=== PATIENT | female | born 1975 | race Caucasian/White ===

== ENCOUNTER 2017-06-29 07:48 | Day surgery (SDC) | payer BC ==
[2017-06-27 15:16] LABS: Calcium 9.3 mg/dL (8.5-10.1); Potassium 4.5 mmol/L (3.5-5.1)
[2017-06-27 15:27] LABS: INR 1.14 (0.9-1.15); Partial Thromboplastin Time 28.2 sec (22.64-33.71); Prothrombin Time 12.4 sec (9.37-12.3)
[2017-06-27 15:29] LABS: Urine Bilirubin Negative (Negative); Urine Blood Negative /uL (Negative); Urine Color Yellow (Yellow); Urine Glucose Normal (Normal); Urine Ketone Negative (Negative); Urine Nitrite Negative (Negative); Urine RBC 2 /hpf (0 - 4); Urine Squamous Epithelial Cell FEW /hpf (<5); Urine Urobilinogen Normal (Negative)
[2017-06-27 15:31] LABS: Basophils # (auto) 0.1 uL; Basophils % (auto) 0.8 % (0.0-2.0); Eosinophils # (auto) 0.1 uL; Eosinophils % (auto) 1.7 % (0.0-7.0); Hematocrit 44.7 % (36.0-46.0); Lymphocytes # (auto) 2.2 uL; Lymphocytes % (auto) 29.6 % (10.0-50.0); Mean Corpuscular Hemoglobin 31.8 pg (28.0-32.0); Mean Corpuscular Hgb Conc. 33.6 g/dL (32.0-36.0); Mean Corpuscular Volume 94.6 fL (80.0-100.0); Mean Platelet Volume 8.3 fL (6.9-10.8); Monocytes # (auto) 0.7 uL; Monocytes % (auto) 9.6 % (0.0-12.0); Neutrophils # (auto) 4.3 uL; Neutrophils % (auto) 58.3 % (37.0-80.0); Platelet Count (auto) 260 10^3/uL (140-450); Red Cell Distribution Width 13.9 % (11.8-14.3); White Blood Cell 7.4 10^3/uL (4.4-10.8)
[~2017-06-29] VITALS: Ht 188 cm; Wt 104.3 kg
[~2017-06-29 07:48] MED LIST: ONDA4TAB5 PO
[2017-06-29] MEDS ORDERED: ceFAZolin 1GM/50ML D5W 50 ML IV ONE (08:57)
[2017-06-29] MEDS ORDERED: LACTATED RINGER'S 1,000 ML IV SCH (08:59)
[2017-06-29] MEDS ORDERED: BUPIVACAINE 0.25% INJ 50ML VIAL ONE (08:59)
[2017-06-29] MEDS ORDERED: LIDOCAINE HCL (LOCAL ANESTH.) 0.5 % 50ML MDV IJ ONE (08:59)
[2017-06-29] MEDS ORDERED: LIDOCAINE W/ EPINEPHRINE 1 % INJ 30ML ONE (08:59)
[2017-06-29] MEDS ORDERED: SUCCINYLCHOLINE CHLORIDE 20 MG/ML 10ML VIAL IV ONE (09:18)
[2017-06-29] MEDS ORDERED: METOCLOPRAMIDE HCL 5MG/ml INJ 2ml VIAL ONE (09:44)
[2017-06-29] MEDS ORDERED: MEPERIDINE HCL (50 MG/ML) 1 ML VIAL ONE (09:46)
[2017-06-29] MEDS ORDERED: fentaNYL CITRATE 100 MCG/2 ML VL ONE (09:46)
[2017-06-29] MEDS ORDERED: fentaNYL CITRATE 10 ML ONE (09:46)
[2017-06-29] MEDS ORDERED: MIDAZOLAM HCL 1MG/1ML-2 ML VIAL ONE (09:46)
[2017-06-29] MEDS ORDERED: ROCURONIUM 10MG/ML 10ML VIAL IV ONE (11:03)
[2017-06-29] MEDS ORDERED: KETOROLAC TROMETH 60MG/2ML VIAL IM ONE ×2 (11:04→11:45)
[2017-06-29] MEDS ORDERED: ONDANSETRON HCL 4 MG/2 ML VIAL ONE (11:04)
[2017-06-29] MEDS ORDERED: SODIUM CHLORIDE LOCK 20 ML ONE (11:04)
[2017-06-29] MEDS ORDERED: NEOSTIGMINE 1 MG/ML INJ (10mg/10ML VIAL) ONE (11:04)
[2017-06-29] MEDS ORDERED: GLYCOPYRROLATE 0.2 MG/ML 1ML VIAL ONE (11:04)
[2017-06-29] MEDS ORDERED: PROPOFOL 10 MG/ML 20 ML IV ONE (11:04)
[2017-06-29] MEDS ORDERED: KETOROLAC TROMETH 30 MG/ML 1ML VIAL ONE (11:23)
[2017-06-29] MEDS ORDERED: HYDROmorphone HCL 2 MG/ML VL IV PRN (11:45)
[2017-06-29] MEDS ORDERED: ONDANSETRON HCL 4 MG/2 ML VIAL IV ONE (11:45)
[2017-06-29 13:32] VITALS: BP 116/66
== END 2017-06-29 13:50 | disposition home or self-care (01) ==
LOC: SUR 07:48
PROVIDERS: ATTEND Obstetrics & Gynecology
DX: N83.8 Other noninflammatory disorders of ovary, fallopian tube and broad ligament (principal); N80.8 Other endometriosis; N73.6 Female pelvic peritoneal adhesions (postinfective); R19.09 Other intra-abdominal and pelvic swelling, mass and lump; N89.9 Noninflammatory disorder of vagina, unspecified; K31.84 Gastroparesis; Z90.710 Acquired absence of both cervix and uterus
CPT/HCPCS: 36415; 56620; 58661; 80048; 81001; 84702; 85025; 85610; 85730; 86850; 86900; 86901; 87086; 88305; J0330; J0690; J1885; J2001; J2175; J2250; J2405; J2704; J2765; J3010; J3490